=== PATIENT | male | born 1930 | race Caucasian/White ===

== ENCOUNTER 2017-06-14 11:12 | Emergency (ER) | payer BC, MEDICAID ==
[~2017-06-14] VITALS: Ht 154.9 cm; Wt 68.0 kg
[2017-06-14 11:12] VITALS: BP_SYST 141
--- NOTE | 2017-06-14 11:12 | NUR ---
TRIAGED AND BROUGHT BACK TO BED #1, REPORT GIVEN TO NURSE
--- NOTE | 2017-06-14 11:30 | NUR ---
Pt complains of pain to mouth pain, nose pain s/p fall. Laceration noted to bottom lip, abrasions to left wrist, right wrist and multiple fingers, abrasion to chin, nose, top of head and skin tear. Pt denies loss of consciousness, ambulated into ER with no noted difficulty. No other injuries/complaints per pt or noted.
--- NOTE | 2017-06-14 11:41 | NUR ---
DR PEREZ AT BEDSIDE FOR EVALUATION
[2017-06-14] MEDS ORDERED: LIDOCAINE/EPI 1% 1:100000 20 ML VIAL IJ ONE (11:45)
[2017-06-14] MEDS ORDERED: BACITRACIN 1 GM OINT TP ONE (11:45)
--- NOTE | 2017-06-14 11:50 | NUR ---
rcv report from JETT Mendoza; pt resting comfortably in bed; family at bedside; labs being drawn at bedside; pt demetrius
[2017-06-14 12:00] LABS: BASOPHILS % (AUTO) 0.5 % (0.0-2.0); EOSINOPHILS # (AUTO) 0.1 K/uL (0.0-0.4); EOSINOPHILS % (AUTO) 2.1 % (0.0-4.0); HEMATOCRIT 38.2 % (36-54); HEMOGLOBIN 12.9 g/dL (14.0-18.0); LYMPHOCYTES # (AUTO) 1.7 K/uL (1.0-5.5); LYMPHOCYTES % (AUTO) 33.2 % (20.5-51.5); MEAN CORPUSCULAR HEMOGLOBIN 32 pg (27-31); MEAN CORPUSCULAR HGB CONC 34 % (32-36); MEAN CORPUSCULAR VOLUME 95 fL (79.0-98.0); MONOCYTES # (AUTO) 0.6 K/uL (0.0-1.0); MONOCYTES % (AUTO) 11.8 % (1.7-9.3); NEUTROPHILS # (AUTO) 2.7 K/uL (1.8-7.7); NEUTROPHILS % (AUTO) 52.4 % (40.0-70.0); PLATELET COUNT (AUTO) 208 K/uL (130-430); RED BLOOD CELL COUNT(AUTO) 4.01 MIL/uL (4.2-6.2); WHITE BLOOD COUNT (AUTO) 5.1 K/uL (4.8-10.8)
[2017-06-14 12:09] LABS: ANION GAP 9 (5-15); CHLORIDE 105 mmol/L (98-107); CREATININE 0.87 mg/dL (0.55-1.30); GLUCOSE 122 mg/dL (70-99); POTASSIUM 3.9 mmol/L (3.5-5.1); SODIUM SERUM 139 mmol/L (136-145); UREA NITROGEN, BLOOD 24 mg/dL (8-21)
[2017-06-14 12:15] LABS: ALANINE AMINOTRANSFERASE 15 U/L (12-78); ALBUMIN 3.5 g/dL (3.4-4.8); ASPARTATE AMINOTRANSFERASE 28 U/L (10-37); TOTAL BILIRUBIN 0.5 mg/dL (0.0-1.0)
--- NOTE | 2017-06-14 12:30 | NUR ---
Dr Perez is at bedside suturing lip, 5 stitches to inside of bottom lip and 4 stitches to outside bottom lip, pt tolerated it well. Was cleaned with ns, and bacitracin was applied with bandaides to abrasions on wrists and fingers.
--- NOTE | 2017-06-14 13:10 | NUR ---
Tetanus shot was given, pt tolerated it well, no noted adverse reaction.
[2017-06-14] MEDS ORDERED: DIPH-TET-PERTUS Vaccine 0.5 ML VIAL (ADACEL) IM ONE (13:30)
[2017-06-14 13:39] VITALS: BP_SYST 140
--- NOTE | 2017-06-14 13:39 | NUR ---
Patient given written and verbal discharge instructions and verbalizes understanding. ER MD discussed with patient the results and treatment provided. Patient in stable condition. ID arm band removed. Rx of augmentin given. Patient educated on pain management and to follow up with PMD. Pain Scale 2. Opportunity for questions provided and answered.
== END 2017-06-14 13:39 | disposition home or self-care (01) ==
LOC: SED 11:12
DX: S01.511A Laceration without foreign body of lip, initial encounter (principal); S60.212A Contusion of left wrist, initial encounter; S60.211A Contusion of right wrist, initial encounter; I10 Essential (primary) hypertension; W18.30XA Fall on same level, unspecified, initial encounter; Y93.01 Activity, walking, marching and hiking; Y92.524 Gas station as the place of occurrence of the external cause; Y99.8 Other external cause status
CPT/HCPCS: 36415; 70450-TC; 70486-TC; 72125-TC; 80053; 84484; 85025; 90715; 93005; 99285